=== PATIENT | male | born 1985 | race Caucasian/White ===

== ENCOUNTER 2019-07-09 16:11 | Emergency (ER) | payer BC ==
[2019-07-09] MEDS ORDERED: Fluorescein Opthalmic Strip ONE (16:36)
[2019-07-09] MEDS ORDERED: Proparacaine 0.5% Opth 15 ML BOT ONE (16:59)
== END 2019-07-09 17:47 | disposition home or self-care (01) ==
LOC: ERS 16:11
DX: S05.01XA Injury of conjunctiva and corneal abrasion without foreign body, right eye, initial encounter (principal); F17.210 Nicotine dependence, cigarettes, uncomplicated; X58.XXXA Exposure to other specified factors, initial encounter
CPT/HCPCS: 99283